=== PATIENT | male | born 1995 ===

== ENCOUNTER 2019-01-02 18:45 | Emergency (ER) | payer SELFPAY ==
[2019-01-02] MEDS ORDERED: IBUPROFEN 800 MG TABLET PO ONE (23:34)
[2019-01-02] MEDS ORDERED: FAMOTIDINE 20 MG TABLET PO ONE (23:34)
--- NOTE | 2019-01-02 23:35 | ER Document Report ---
ED Cardiac - General Chief Complaint: Chest Pain Stated Complaint: CHEST PAIN ON LEFT SIDE Time Seen by Provider: 01/02/19 23:17 Notes: 23-year-old male to the emergency department chief complaint of a one- week history of intermittent left-sided chest pain. Worse with movement. No shortness of breath. No other major issues. No fever, chills, sweats. Not coughing up blood. TRAVEL OUTSIDE OF THE [place] IN LAST 30 DAYS: No - HPI Patient complains to provider of: Chest pain Quality of pain: Intermittent Severity now: Moderate Severity at worst: Moderate Pain level currently: 2 Chest pain precipitating factors: Physical Exertion - Related Data Allergies/Adverse Reactions: No Known Allergies Allergy (Unverified 01/02/19 18:51) Past Medical History - General Information source: Patient - Social History Smoking Status: Never Smoker Frequency of alcohol use: None Drug Abuse: None Lives with: Family Family History: Reviewed & Not Pertinent Patient has suicidal ideation: No Patient has homicidal ideation: No - Medical History Medical History: Negative Renal/ Medical History: Denies: Hx Peritoneal Dialysis Past Surgical History: Reports: Hx Appendectomy Review of Systems - Review of Systems Notes: Constitutional: denies: Chills, Diaphoresis, Fever, Malaise, Weakness EENT: denies: Eye discharge, Blurred vision, Tearing, Double vision, Nose congestion, Nose discharge, Throat swelling, Mouth pain Cardiovascular: denies: Palpitations, Heart racing, Orthopnea, Dyspnea, +Chest pain Respiratory: denies: Cough, Hurts to breathe, Wheezing, Shortness of breath Gastrointestinal: denies: Abdominal pain, Diarrhea, Nausea, Vomiting, Black stools, bright red blood in stool Genitourinary: denies: Burning, Dysuria, Discharge, Frequency, Flank pain, Hematuria Musculoskeletal: denies: Joint pain, Joint swelling, Muscle pain, Muscle stiffness, back pain Hematologic/Lymphatic: denies: Anemia, Easy bleeding, Easy bruising, Blood clots Neurological/Psychological: denies: Confusion, Dementia, Depression, Loss of consciousness Skin: No lesions, no masses, no skin breakdown, no abscesses Physical Exam - Vital signs Vitals: Temp Pulse Resp BP Pulse Ox 98.4 F 74 16 144/90 H 98 01/02/19 18:50 01/02/19 18:50 01/02/19 18:50 01/02/19 18:50 01/02/19 18:50 Interpretation: Normal - General General appearance: Appears well, Alert - HEENT Head: Normocephalic, Atraumatic Eyes: Normal Pupils: PERRL - Respiratory Respiratory status: No respiratory distress Chest status: Nontender Breath sounds: Normal Chest palpation: Normal - Cardiovascular Rhythm: Regular Heart sounds: Normal auscultation Murmur: No - Abdominal Inspection: Normal Distension: No distension Bowel sounds: Normal Tenderness: Nontender Organomegaly: No organomegaly - Back Back: Normal, Nontender - Extremities General upper extremity: Normal inspection, Nontender, Normal color, Normal ROM, Normal temperature General lower extremity: Normal inspection, Nontender, Normal color, Normal ROM, Normal temperature, Normal weight bearing. No: Jimbo's sign - Neurological Neuro grossly intact: Yes Cognition: Normal Orientation: AAOx4 [place] Coma Scale Eye Opening: Spontaneous [place] Coma Scale Verbal: Oriented [place] Coma Scale Motor: Obeys Commands [place] Coma Scale Total: 15 Speech: Normal Motor strength normal: LUE, RUE, LLE, RLE Sensory: Normal - Psychological Associated symptoms: Normal affect, Normal mood - Skin Skin Temperature: Warm Skin Moisture: Dry Skin Color: Normal Course - Re-evaluation Re-evalutation: 01/03/19 00:46 Well-appearing 23-year-old male in no acute distress with no significant family history, cardiac risk factors or other pathology which would be concerning for chest pain. Chest x-ray does not show a pneumothorax or any abnormal findings. EKG is normal. Patient is describing some reflux type symptoms which is more t weiss likely his issue. I have explained a his friend as well as himself that he should be seen as an outpatient for further evaluation as sometimes this can be a outpatient workup. I do not feel there is any emergeny at this time. DC in stable condition 01/03/19 05:45 Chest x-ray and EKG are normal. - Vital Signs Vital signs: Temp Pulse Resp BP Pulse Ox 98.2 F 70 15 135/80 H 99 01/03/19 01:03 01/03/19 01:03 01/03/19 01:03 01/03/19 01:03 01/03/19 01:03 Discharge - Discharge Clinical Impression: Chest pain Qualifiers: Chest pain type: unspecified Qualified Code(s): R07.9 - Chest pain, unspecified Condition: Good Disposition: HOME, SELF-CARE Instructions: Chest Pain of Unclear Cause ([facility]), Reflux Disease (GERD) ([facility]) Prescriptions: Ibuprofen [Motrin 800 mg Tablet] 800 mg PO Q8H PRN 10 Days #30 tab PRN Reason: For Pain Scale 3-4 Ranitidine HCl [Zantac] 150 mg PO BID 10 Days #20 tablet Forms: Return to Work Print Language: Persian
--- NOTE | 2019-01-03 00:26 | RADIOLOGY REPORT (SQ) ---
EXAM DESCRIPTION: XR CHEST 2 VIEWS COMPLETED DATE/TME: 01/02/2019 23:34 CLINICAL HISTORY: 23 years, Male, chest pain COMPARISON: None. NUMBER OF VIEWS: Two TECHNIQUE: Two views of the chest LIMITATIONS: None. FINDINGS: The lungs are clear. The heart is normal in size. There is no pneumothorax or pleural effusion. There is no acute fracture IMPRESSION: No acute cardiopulmonary abnormality copyright 2010 [employer]- All Rights Reserved
[2019-01-03 01:04] VITALS: BP 135/80
--- NOTE | 2019-01-04 09:29 | EKG REPORT ---
SEVERITY:- BORDERLINE ECG - SINUS RHYTHM INFERIOR Q WAVES, PROBABLY NORMAL VARIATION : Confirmed by: Zafar Holley 04-Jan-2019 09:28:57
== END 2019-01-03 01:07 | disposition home or self-care (01) ==
LOC: ER 18:45
DX: R07.9 Chest pain, unspecified (principal)
CPT/HCPCS: 71046; 93005; 93010; 99285